=== PATIENT | female | born 2000 | race Caucasian/White ===

== ENCOUNTER 2023-02-15 10:50 | Emergency (ER) | payer OTHER ==
[~2023-02-15] VITALS: Ht 167.6 cm; Wt 66.2 kg
[2023-02-15 11:25] VITALS: BP 122/72
--- NOTE | 2023-02-15 11:25 | NUR ---
Patient discharged to home in stable condition. Written and verbal after care instructions given. Patient verbalizes understanding of instruction. Patient verbalized "i am not suicidal", "i want to leave".
== END 2023-02-15 11:25 | disposition home or self-care (01) ==
LOC: ER 11:00
DX: F41.9 Anxiety disorder, unspecified (principal); J45.909 Unspecified asthma, uncomplicated; Z60.2 Problems related to living alone
CPT/HCPCS: 36415